=== PATIENT | female | born 1945 | race Two or more races ===

== ENCOUNTER 2018-03-09 17:46 | Emergency (ER) | payer OTHER ==
[~2018-03-09] VITALS: Ht 160 cm; Wt 64.9 kg
[2018-03-09 19:09] VITALS: BP 162/79
== END 2018-03-09 19:11 | disposition home or self-care (01) ==
LOC: ED 19:10
DX: S06.0X0A Concussion without loss of consciousness, initial encounter (principal); S00.83XA Contusion of other part of head, initial encounter; W19.XXXA Unspecified fall, initial encounter; Y93.89 Activity, other specified; Y99.8 Other external cause status; Y92.009 Unspecified place in unspecified non-institutional (private) residence as the place of occurrence of the external cause
CPT/HCPCS: 70450; 72125; 99284